=== PATIENT | male | born 1960 | race Caucasian/White ===

== ENCOUNTER 2019-08-17 18:57 | Emergency (ER) | payer SELFPAY ==
[2019-08-17 21:41] LABS: ABSOLUTE BASOPHILS # (AUTO) 0.1 10^3/uL (0.0-0.2); ABSOLUTE EOSINOPHILS # (AUTO) 0.2 10^3/uL (0.0-0.6); ABSOLUTE LYMPHOCYTES (AUTO) 2.1 10^3/uL (0.5-4.7); ABSOLUTE MONOCYTES (AUTO) 0.5 10^3/uL (0.1-1.4); ABSOLUTE NEUT (AUTO) 6.6 10^3/uL (1.7-8.2); BASOPHILS % (AUTO) 0.7 % (0-2); EOSINOPHILS % (AUTO) 2.2 % (0-6); HEMATOCRIT 49.6 % (37.9-51.0); HEMOGLOBIN 16.8 g/dL (13.5-17.0); MEAN CORPUSCULAR HEMOGLOBIN 30.2 pg (27.0-33.4); MEAN CORPUSCULAR VOLUME 89 fl (80-97); MONOCYTES % (AUTO) 5.4 % (3-13); PLATELET COUNT 235 10^3/uL (150-450); RED BLOOD COUNT 5.57 10^6/uL (4.35-5.55); RED CELL DISTRIBUTION WIDTH 14.7 % (11.5-14.0); SEGMENTED NEUTROPHILS % (AUTO) 69.7 % (42-78); TOTAL CELLS COUNTED % (AUTO) 100 %; WHITE BLOOD COUNT 9.5 10^3/uL (4.0-10.5)
[2019-08-17 21:50] LABS: APPEARANCE,URINE CLEAR; BILIRUBIN,URINE NEGATIVE (NEGATIVE); COLOR,URINE STRAW; GLUCOSE, URINE NEGATIVE (NEGATIVE); KETONES,URINE NEGATIVE (NEGATIVE); LEUKOCYTE ESTERASE,URINE NEGATIVE (NEGATIVE); NITRITE,URINE NEGATIVE (NEGATIVE); PROTEIN,URINE NEGATIVE (NEGATIVE); URINE SPECIFIC GRAVITY 1.003; UROBILINOGEN,URINE NEGATIVE mg/dL (<2.0)
[2019-08-17 21:58] LABS: ALBUMIN 4.5 g/dL (3.5-5.0); ALCOHOL 193 mg/dL (NONE DETECTED); ALKALINE PHOSPHATASE 61 U/L (38-126); ANION GAP 10 (5-19); ASPARTATE AMINO TRANSFERASE 26 U/L (17-59); BILIRUBIN,DIRECT 0.3 mg/dL (0.0-0.4); BILIRUBIN,TOTAL 0.4 mg/dL (0.2-1.3); BLOOD UREA NITROGEN 9 mg/dL (7-20); CALCIUM 9.3 mg/dL (8.4-10.2); CARBON DIOXIDE 30 mmol/L (22-30); CHLORIDE 103 mmol/L (98-107); GLUCOSE 88 mg/dL (75-110); POTASSIUM 4.1 mmol/L (3.6-5.0); TOTAL PROTEIN 7.9 g/dL (6.3-8.2)
[2019-08-17 22:03] LABS: ACETAMINOPHEN < 10 ug/mL (10-30); SALICYLATE < 1.0 mg/dL (2.0-20.0)
--- NOTE | 2019-08-17 22:03 | EKG REPORT ---
SEVERITY:- OTHERWISE NORMAL ECG - SINUS RHYTHM ATRIAL PREMATURE COMPLEX RIGHT AXIS DEVIATION : Confirmed by: Landry Saenz 17-Aug-2019 22:02:52
[2019-08-17 22:07] LABS: URINE AMPHETAMINES SCREEN NEGATIVE; URINE BARBITURATES SCREEN NEGATIVE; URINE BENZODIAZEPINES SCREEN NEGATIVE; URINE COCAINE SCREEN NEGATIVE; URINE MARIJUANA (THC) SCREEN NEGATIVE; URINE METHADONE SCREEN NEGATIVE; URINE PHENCYCLIDINE SCREEN NEGATIVE
--- NOTE | 2019-08-17 23:29 | ER Document Report ---
ED Psych Disorder / Suicide - General Chief Complaint: Suicidal Ideation Stated Complaint: SUICIDAL IDEATION Time Seen by Provider: 08/17/19 21:50 Notes: Patient is a 59-year-old male that comes emergency department for chief complaint of a suicide attempt and suicidal ideations. Patient states that he is staying at a transition home and needs very, he was discharged from a rehab center near [place] and transferred to there, he has been at the transition home for 1 month, he states that he has become very depressed there and he is not suicidal because of it. He states that tonight he was trying to drink alcohol to the point that he had "liquid courage" and he could slice open his wrists to kill himself. He states that he was found drinking and he was kicked out of the house. He states that he had the knife with him but the "idea was too brutal" and he did not go through with it. Patient states if he is discharged he will get even more drunk and "figure something out". He states he has had a problem with alcohol before but he has never had withdrawals and he states he was just using the alcohol tonight to try to go through with killing himself. He is not homicidal. He states he used to be treated with antidepressants but he is not on these anymore. He states he is not prescribed any daily medications. He denies medical history other than orthopedic surgery. He denies recreational drugs. TRAVEL OUTSIDE OF THE [place] IN LAST 30 DAYS: No Past Medical History - General Information source: Patient - Social History Smoking Status: Current Every Day Smoker Frequency of alcohol use: Heavy Drug Abuse: None Lives with: Family Family History: Reviewed & Not Pertinent Patient has suicidal ideation: Yes Patient has homicidal ideation: No Psychiatric Medical History: Reports: Hx Depression - Immunizations Immunizations up to date: Yes Hx Diphtheria, Pertussis, Tetanus Vaccination: Yes Review of Systems - Review of Systems Constitutional: No symptoms reported EENT: No symptoms reported Cardiovascular: No symptoms reported Respiratory: No symptoms reported Gastrointestinal: No symptoms reported Genitourinary: No symptoms reported Male Genitourinary: No symptoms reported Musculoskeletal: No symptoms reported Skin: No symptoms reported Hematologic/Lymphatic: No symptoms reported Neurological/Psychological: See HPI Physical Exam - Vital signs Vitals: Temp Pulse Resp BP Pulse Ox 97.4 F 88 20 138/74 H 97 08/17/19 19:29 08/17/19 19:29 08/17/19 19:29 08/17/19 19:08/17/19 19: - Notes Notes: GENERAL: Alert, interacts well. No acute distress. HEAD: Normocephalic, atraumatic. EYES: Pupils equal, round, and reactive to light. Extraocular movements intact. ENT: Oral mucosa moist, tongue midline. Oropharynx unremarkable. Airway patent. LUNGS: Clear to auscultation bilaterally, no wheezes, rales, or rhonchi. No respiratory distress. HEART: Regular rate and rhythm. No murmur ABDOMEN: Soft, non-tender. Non-distended. Bowel sounds present in all 4 quadrants. GENITOURINARY: Deferred EXTREMITIES: Moves all 4 extremities spontaneously. No edema, normal radial and dorsalis pedis pulses bilaterally. No cyanosis. BACK: no cervical, thoracic, lumbar midline tenderness. No saddle anesthesia, normal distal neurovascular exam. Moves all extremities in full range of motion. NEUROLOGICAL: Alert and oriented x3. Normal speech. Cranial nerves II through XII grossly intact. PSYCH: Makes good eye contact, occasionally becomes tearful SKIN: Warm, dry, normal turgor. No rashes or lesions noted. Course - Re-evaluation Re-evalutation: Patient was placed on IVC paperwork, signed by Dr. Burns. This was because of suicidal ideations with plan and verbalized plan to commit suicide if he was discharged. Patient is calm, cooperative, occasionally tearful. Laboratory work-up and EKG unremarkable. Vital signs unremarkable. Patient has no complaints and is actually pleasant. Patient states understanding about paperwork, states he is eager to talk to mental health team this morning to see what they can work out. He states he is hoping he can somehow get back to his brother to live with him in [place] and find a job. Patient is medically cleared pending mental health evaluation. - Vital Signs Vital signs: Temp Pulse Resp BP Pulse Ox 97.4 F 88 20 138/74 H 97 08/17/19 19:29 08/17/19 19:29 08/17/19 19:29 08/17/19 19:29 08/17/19 19: - Laboratory Result Diagrams: 08/17/19 21:23 08/17/19 21:23 Laboratory results interpreted by me: 08/17/19 08/17/19 21:23 21:23 RBC 5.57 H RDW 14.7 H Salicylates < 1.0 L Acetaminophen < 10 L Discharge - Discharge Clinical Impression: Suicidal ideation, Alcohol abuse Condition: Stable Disposition: PSYCH HOSP/UNIT
[2019-08-18] MEDS ORDERED: NICOTINE 21 MG/24 HR PATCH.TD24 TD ONE (14:10)
--- NOTE | 2019-08-18 14:11 | ER Document Report ---
Doctor's Note Notes: 08/18/19 14:10 PHYSICAL EXAMINATION: GENERAL: Appears well, healthy, well-nourished, no acute distress. LUNGS: Equal breath sounds bilaterally and clear to auscultation. No wheezes rales or rhonchi. CARDIOVASCULAR: S1-S2, regular rate, regular rhythm. Radial pulses 2+, normal. ABDOMEN: Normoactive bowel sounds. Soft, nontender, no guarding, no rebound tenderness, and no masses palpated. PSYCH: Normal mood, normal affect. Patient denies any suicidal or homicidal ideation. Patient states that he feels the way he feels because of his living situation and not that he wants to hurt himself. He states, "I want to live and they do not want to hurt myself." Plan is for him to go to [facility] crisis [facility]. See EMTALA form filled out by Dr. Salgado.
[2019-08-18 17:39] VITALS: BP 142/86
== END 2019-08-18 17:56 ==
LOC: ER 18:57
DX: R45.851 Suicidal ideations (principal); F10.10 Alcohol abuse, uncomplicated; F17.200 Nicotine dependence, unspecified, uncomplicated
CPT/HCPCS: 36415; 80053; 80307; 81001; 85025; 93005; 93010; 99285

== ENCOUNTER 2019-08-24 10:13 | Emergency (ER) | payer SELFPAY ==
--- NOTE | 2019-08-24 10:31 | ER Document Report ---
ED Medical Screen (RME) - General Chief Complaint: Suicidal Ideation Stated Complaint: SUCIDIAL IDEATION Time Seen by Provider: 08/24/19 10:27 TRAVEL OUTSIDE OF THE [place] IN LAST 30 DAYS: No - HPI Notes: 08/24/19 10:30 Patient is a 59-year-old male who was here about a week ago for suicide ideation with plan complaining of worsening thoughts of suicidal ideation and depressed mood. He is now currently homeless. Patient states that he does not how to cope with this appropriately and started drinking again. Patient states that he is trying to figure out a way that he can painlessly as he "just does not want to be here anymore." No fever, chest pain, shortness of breath, abdominal pain. I have treated and performed a rapid initial assessment of this patient. A comprehensive ED assessment and evaluation of the patient, analysis of test results and completion of medical decision making process will be conducted by additional ED providers. PHYSICAL EXAMINATION: GENERAL: Well-appearing, well-nourished and in no acute distress. A&Ox4. Answers questions appropriately. Psych: Depressed mood, poor eye contact - Related Data Allergies/Adverse Reactions: No Known Allergies Allergy (Verified 08/24/19 10:18) Past Medical History Psychiatric Medical History: Reports: Hx Depression - Immunizations Immunizations up to date: Yes Hx Diphtheria, Pertussis, Tetanus Vaccination: Yes
[2019-08-24 11:06] LABS: ABSOLUTE BASOPHILS # (AUTO) 0.1 10^3/uL (0.0-0.2); ABSOLUTE EOSINOPHILS # (AUTO) 0.1 10^3/uL (0.0-0.6); ABSOLUTE LYMPHOCYTES (AUTO) 1.3 10^3/uL (0.5-4.7); ABSOLUTE MONOCYTES (AUTO) 0.8 10^3/uL (0.1-1.4); ABSOLUTE NEUT (AUTO) 7.4 10^3/uL (1.7-8.2); BASOPHILS % (AUTO) 0.9 % (0-2); EOSINOPHILS % (AUTO) 1.2 % (0-6); HEMATOCRIT 44.3 % (37.9-51.0); HEMOGLOBIN 15.2 g/dL (13.5-17.0); MEAN CORPUSCULAR HEMOGLOBIN 30.2 pg (27.0-33.4); MEAN CORPUSCULAR HGB CONC 34.3 g/dL (32.0-36.0); MEAN CORPUSCULAR VOLUME 88 fl (80-97); PLATELET COUNT 224 10^3/uL (150-450); RED BLOOD COUNT 5.03 10^6/uL (4.35-5.55); RED CELL DISTRIBUTION WIDTH 15.1 % (11.5-14.0); SEGMENTED NEUTROPHILS % (AUTO) 76.9 % (42-78); TOTAL CELLS COUNTED % (AUTO) 100 %; WHITE BLOOD COUNT 9.6 10^3/uL (4.0-10.5)
[2019-08-24 11:18] LABS: ACETAMINOPHEN < 10 ug/mL (10-30); ALBUMIN 4.3 g/dL (3.5-5.0); ALCOHOL 40 mg/dL (NONE DETECTED); ALKALINE PHOSPHATASE 59 U/L (38-126); ANION GAP 13 (5-19); ASPARTATE AMINO TRANSFERASE 24 U/L (17-59); BILIRUBIN,DIRECT 0.3 mg/dL (0.0-0.4); BILIRUBIN,TOTAL 0.3 mg/dL (0.2-1.3); BLOOD UREA NITROGEN 18 mg/dL (7-20); CALCIUM 9.3 mg/dL (8.4-10.2); CARBON DIOXIDE 23 mmol/L (22-30); CHLORIDE 103 mmol/L (98-107); GLUCOSE 96 mg/dL (75-110); SALICYLATE < 1.0 mg/dL (2.0-20.0); TOTAL PROTEIN 7.6 g/dL (6.3-8.2)
[2019-08-24 11:30] LABS: APPEARANCE,URINE CLEAR; BILIRUBIN,URINE NEGATIVE (NEGATIVE); COLOR,URINE STRAW; GLUCOSE, URINE NEGATIVE (NEGATIVE); KETONES,URINE NEGATIVE (NEGATIVE); LEUKOCYTE ESTERASE,URINE NEGATIVE (NEGATIVE); NITRITE,URINE NEGATIVE (NEGATIVE); PROTEIN,URINE NEGATIVE (NEGATIVE); URINE SPECIFIC GRAVITY 1.004; UROBILINOGEN,URINE NEGATIVE mg/dL (<2.0)
[2019-08-24 11:45] LABS: URINE AMPHETAMINES SCREEN NEGATIVE; URINE BARBITURATES SCREEN NEGATIVE; URINE BENZODIAZEPINES SCREEN NEGATIVE; URINE COCAINE SCREEN NEGATIVE; URINE MARIJUANA (THC) SCREEN NEGATIVE; URINE METHADONE SCREEN NEGATIVE; URINE PHENCYCLIDINE SCREEN NEGATIVE
--- NOTE | 2019-08-24 13:26 | PSYCHOLOGICAL NOTE ---
Psych Note - Psych Note Date seen by psych provider: 08/24/19 Time seen by psych provider: 12:10 Psych Note: Patient is a 59-year-old male who presents to ED via POV for suicidal ideation. Patient was last seen by ED on 08/18/2019, and was sent to [facility] by ED staff. Behavioral health team spoke to [facility] Staff members, Nurse Lissette and Admission Coordinator Telma. Telma stated patient was discharged yesterday (08/23/2019), taken to the [facility] to get money, and then transported to the local [facility]. Lissette reported the only medication patient was prescribed while at their facility was standard protocol of Trazod one and Vistaril PRN. Lissette further identified patient was at their facility from 08/18/2019 until discharge yesterday (08/23/2019). Patient reports "not doing good at all." Patient discussed distress surrounding current life circumstances due to poor decision making regarding his alcohol abuse. Patient stated "I lost everything" last year due to alcohol abuse. Patient is estranged from his sisters. Patient has a brother who helps, however patient expressed concern that his brother would be upset that "I drank the money" he provided last night. Patient reports being provided with "quite a number" of treatment opportunities in the past. Patient reports "multiple relapses" just in 2019. Patient states his expectation in returning to the ED was to be placed back at [facility]. Patient endorses passive suicidal ideation with no plan, intent, or means. Patient states he would not have any thoughts of suicide if his life circumstances were "on track." Clinician discussed patient's responsibility for his life choices. Patient states he drank because the [facility] did not have a bed available. Clinician used the example of using the money his brother sent him for a motel room instead of alcohol. Patient is alert and oriented to person, place, time and circumstance. Mood is normal with congruent affect. Patient endorses passive suicidal ideation as a result of his life circumstance and his alcohol abuse. Patient denies homicidal ideation. Delusions are absent and behavior is congruent with an intact reality based presentation (i.e., organized and linear through processes). There is no observed behavior that suggests patient is responding to internal stimuli. Patient is able to engage in organized, rational thought processes. Patient is able to express needs and wants in a logical manner. Patient denies current auditory and visual hallucinations. Eye contact is appropriate. Conversational speech is within normal rate, tone, and prosody. Intellectual ability appears to be within average range. Attention and concentration are good. Insight, judgment and impulse control are currently poor. Impression/Plan: Patient is cleared from acute psychiatric services. Patient endorses passive suicidal ideation as a result of his life circumstances and his alcohol abuse. Patient was discharged from [facility] yesterday. Patient is experiencing homelessness. Patient has limited insight and judgment into his current circumstances (poor life choices, ETOH, and inability to take responsibility for his choices). Patient was provided with a one time cab vo [place] to assist with transportation to homeless [facility], and a street sheet resource with the contact information for mobile crisis and the homeless [facility] highlighted. Dr. Castillo was consulted on the care and management of this patient; attending physician is in agreement with recommendations and disposition.
--- NOTE | 2019-08-24 15:10 | ER Document Report ---
ED General - General Chief Complaint: Suicidal Ideation Stated Complaint: SUCIDIAL IDEATION Time Seen by Provider: 08/24/19 10:27 TRAVEL OUTSIDE OF THE [place] IN LAST 30 DAYS: No - HPI Notes: 59-year-old male presenting today requesting alcohol detox. Patient was seen here few days ago and cleared medically and subsequently referred to [facility] where he remained until yesterday. He was discharg ed from that facility and was supposed to be going to a homeless [facility]ci. He had had money wired to him via [employer] from his brother. For whatever reason the patient chose not to sign into the homeless fci and instead went out and spent most of the money buying alcohol and drinking all night. He presented here today saying that he felt hopeless and thought that he would be "better off " although he denies any specific plan to harm himself. He denies any homicidal ideation. He denies any auditory or visual hallucinations. He denies any use of illicit drugs. He denies any other significant medical issues at this time. Basically wants to be signed back into detox until he can get into "some kind of a long-term treatment program". - Related Data Allergies/Adverse Reactions: No Known Allergies Allergy (Verified 08/24/19 10:18) Past Medical History - General Information source: Patient - Social History Smoking Status: Current Every Day Smoker Chew tobacco use (# tins/day): No Frequency of alcohol use: Heavy Drug Abuse: None Family History: Reviewed & Not Pertinent Patient has suicidal ideation: Yes Patient has homicidal ideation: Yes Psychiatric Medical History: Reports: Hx Depression - Immunizations Immunizations up to date: Yes Hx Diphtheria, Pertussis, Tetanus Vaccination: Yes Review of Systems - Review of Systems Notes: Constitutional: Negative for fever. HENT: Negative for sore throat. Eyes: Negative for visual changes. Cardiovascular: Negative for chest pain. Respiratory: Negative for shortness of breath. Gastrointestinal: Negative for abdominal pain, vomiting or diarrhea. Genitourinary: Negative for dysuria. Musculoskeletal: Negative for back pain. Skin: Negative for rash. Neurological: Negative for headaches, weakness or numbness. 10 point ROS negative except as marked above and in HPI. Physical Exam - Vital signs Vitals: Temp Pulse Resp BP Pulse Ox 98.1 F 114 H 18 154/98 H 96 08/24/19 10:17 08/24/19 10:17 08/24/19 10:17 08/24/19 10:17 08/24/19 10:17 - Notes Notes: GENERAL: Well-developed well-nourished appearing in no acute distress. Aroma of old alcohol present. SKIN: Good turgor no rashes. HEAD: Normocephalic atraumatic. EYES: PERRLA. EOMI. Conjunctivae and sclerae clear. EARS: CANALS AND TMS CLEAR. NOSE: CLEAR. MOUTH: Moist mucosa. Good dentition. No stridor or edema. No drooling. NECK: Supple. No masses or thyromegaly. No adenopathy. Carotids 2+ without bruits. No JVD. BACK: Symmetrical without tenderness. CHEST: Respirations unlabored. Breath sounds clear and symmetrical. HEART: Regular rhythm. No murmur gallop or rub. ABDOMEN: Soft nontender without masses, organomegaly or rebound. Bowel sounds normally active. No bruits. GENITALIA: Deferred. EXTREMITIES: No edema. No calf tenderness. Cap refill less than 1.5 seconds. Dorsalis pedis and posterior tibial pulses 3+ and symmetrical. NEUROLOGICAL: GCS 15. Alert and oriented x3. Normal gait. Fluent speech. Cranial nerves II through XII intact. Sensorimotor and cerebellar normal. Normal tone. PSYCHIATRIC: Appropriate affect. Course - Re-evaluation Re-evalutation: 08/24/19 15:08 Patient was seen by behavioral health service and we concur that the patient is not suicidal or homicidal. Urine drug screen was negative. Alcohol was 40 on arrival. We will arrange for this man to go back to a homeless fci and he will be provided a meal here and a cab voucher. - Vital Signs Vital signs: Temp Pulse Resp BP Pulse Ox 97.8 F 79 18 119/77 99 08/24/19 11:42 08/24/19 11:42 08/24/19 10:17 08/24/19 11:42 08/24/19 11:42 - Laboratory Result Diagrams: 08/24/19 10:40 08/24/19 10:40 Laboratory results interpreted by me: 08/24/19 08/24/19 10:40 10:40 RDW 15.1 H Salicylates < 1.0 L Acetaminophen < 10 L Discharge - Discharge Clinical Impression: Alcohol abuse Condition: Stable Disposition: HOME, SELF-CARE Additional Instructions: Go to the homeless [facility]ci as directed.
[2019-08-24 15:29] VITALS: BP 110/83
--- NOTE | 2019-08-24 17:31 | EKG REPORT ---
SEVERITY:- ABNORMAL ECG - SINUS RHYTHM SUPRAVENTRICULAR BIGEMINY RIGHT AXIS DEVIATION : Confirmed by: Holli Harvey MD 24-Aug-2019 17:31:27
== END 2019-08-24 15:15 | disposition home or self-care (01) ==
LOC: ER 10:13
DX: F10.10 Alcohol abuse, uncomplicated (principal); Y90.2 Blood alcohol level of 40-59 mg/100 ml; R45.851 Suicidal ideations; R45.850 Homicidal ideations; F17.200 Nicotine dependence, unspecified, uncomplicated; Z59.0 Homelessness
CPT/HCPCS: 36415; 80053; 80307; 81001; 85025; 93005; 93010; 99285